=== PATIENT | female | born 1970 | race African-American/Black ===

== ENCOUNTER 2021-11-02 11:49 | Outpatient (CLI) | payer OTHER ==
[2021-11-02 12:37] LABS: Hemoglobin 13.3 g/dL (12.0-15.5); Mean Corpuscular HGB CONC 33.8 g/dL (32.0-36.0); Mean Corpuscular Hemoglobin 32.7 pg (27.0-33.0); Mean Corpuscular Volume 96.6 fl (81.6-98.3); Mean Platelet Volume 10.2 fl (7.4-10.4); Platelet Count 275 10x3/uL (150-450); RBC Distribution Width 12.3 % (11.5-14.5); Red Blood Cell (RBC) Count 4.07 10x6/uL (3.90-5.03); White Blood Cell (WBC) Count 5.7 10x3/uL (3.5-10.5)
[2021-11-02 12:53] LABS: PTT 26.6 sec (22.0-33.0); Prothrombin Time 11.2 sec (9.5-12.1)
[2021-11-02 12:57] LABS: Anion Gap 14 mmol/L (10-20); BUN (Urea Nitrogen) 12 mg/dL (9.8-20.1); Calc. Creatinine Clearance 0 mL/min (70-130); Carbon Dioxide 27 mmol/L (22-29); Chloride 106 mmol/L (98-107); Glucose 79 mg/dL (70-105); Potassium 3.5 mmol/L (3.5-5.1); Sodium 143 mmol/L (136-145)
[2021-11-02 21:34] LABS: SARS-CoV-2 PCR by NAA Not Detected (NotDetected)
== END 2021-11-02 11:50 | disposition home or self-care (01) ==
LOC: LABBT 11:49
PROVIDERS: ATTEND Surgery
DX: Z01.818 Encounter for other preprocedural examination (principal); Z20.822 Contact with and (suspected) exposure to COVID-19
CPT/HCPCS: 80048; 85027; 85610; 85730; 86850; 86900; 86901; 93005; 93010; U0003; U0005

== ENCOUNTER 2021-11-07 07:08 | Observation (INO) | payer OTHER ==
[2021-11-02 12:37] LABS: Hemoglobin 13.3 g/dL (12.0-15.5); Mean Corpuscular HGB CONC 33.8 g/dL (32.0-36.0); Mean Corpuscular Hemoglobin 32.7 pg (27.0-33.0); Mean Corpuscular Volume 96.6 fl (81.6-98.3); Mean Platelet Volume 10.2 fl (7.4-10.4); Platelet Count 275 10x3/uL (150-450); RBC Distribution Width 12.3 % (11.5-14.5); Red Blood Cell (RBC) Count 4.07 10x6/uL (3.90-5.03); White Blood Cell (WBC) Count 5.7 10x3/uL (3.5-10.5)
[2021-11-02 12:53] LABS: PTT 26.6 sec (22.0-33.0); Prothrombin Time 11.2 sec (9.5-12.1)
[2021-11-02 12:57] LABS: Anion Gap 14 mmol/L (10-20); BUN (Urea Nitrogen) 12 mg/dL (9.8-20.1); Calc. Creatinine Clearance 0 mL/min (70-130); Carbon Dioxide 27 mmol/L (22-29); Chloride 106 mmol/L (98-107); Glucose 79 mg/dL (70-105); Potassium 3.5 mmol/L (3.5-5.1); Sodium 143 mmol/L (136-145)
[2021-11-02 21:34] LABS: SARS-CoV-2 PCR by NAA Not Detected (NotDetected)
[2021-11-07] MEDS ORDERED: Midazolam HCl 2 mg/2 ml Vial ONE (09:47)
[2021-11-07] MEDS ORDERED: Thrombin 5000 UNITS/5 ML VIAL ONE (10:07)
[2021-11-07] MEDS ORDERED: CEFAZOLIN 2 GM VIAL ONE (10:15)
[2021-11-07] MEDS ORDERED: Sodium Chloride 0.9% 100 ML ONE (10:15)
[2021-11-07] MEDS ORDERED: fentaNYL Citrate/PF 100 MCG/2 ML SYRINGE ONE ×4 (10:19→13:29)
[2021-11-07] MEDS ORDERED: Rocuronium Bromide 10 MG/ML (10ML VIAL) ONE (10:36)
[2021-11-07] MEDS ORDERED: Lidocaine 1% PF 5 ML VIAL ONE (10:36)
[2021-11-07] MEDS ORDERED: Dexamethasone 20 MG/5 ML VIAL ONE (10:36)
[2021-11-07] MEDS ORDERED: Glycopyrrolate 0.2 MG/ML 5 ML SYRINGE ONE (10:36)
[2021-11-07] MEDS ORDERED: Ondansetron PF 4 MG/2 ML Vial ONE ×2 (10:36→14:21)
[2021-11-07] MEDS ORDERED: PROPOFOL 200 MG/20 ML VIAL ONE (10:36)
[2021-11-07] MEDS ORDERED: Morphine 2 MG/ML VIAL SLOW IVP PRN (12:50)
[2021-11-07] MEDS ORDERED: Ondansetron PF 4 MG/2 ML Vial IVP PRN (12:50)
[2021-11-07] MEDS ORDERED: traMADol HCl 50 MG TAB PO PRN (12:50)
[2021-11-07] MEDS ORDERED: Acetaminophen/Codeine 30-300mg Tablet PO PRN (12:50)
[2021-11-07] MEDS ORDERED: Acetaminophen 325 MG TAB PO PRN (12:50)
[2021-11-07] MEDS ORDERED: tiZANidine HCl 4 MG TAB PO PRN (12:55)
[2021-11-07] MEDS ORDERED: Fentanyl 100 MCG/2 ML VIAL ONE (13:46)
[2021-11-07] MEDS ORDERED: tiZANidine HCl 4 MG TAB ONE (14:03)
[2021-11-07] MEDS ORDERED: Cepastat Lozenges 1 LOZ PO PRN (14:06)
[2021-11-07] MEDS ORDERED: Chloraseptic Spray 180 ml Bottle PO PRN (14:06)
[2021-11-07] MEDS ORDERED: Ketorolac Tromethamine 30 MG/ML VIAL IVP PRN (14:06)
[2021-11-07] MEDS ORDERED: Ketorolac Tromethamine 30 MG/ML VIAL ONE (14:07)
[2021-11-07] MEDS: HYDROcodone/Acetaminophen 7.5/325 mg Tablet PO PRN ×2 (15:38→22:47)
[2021-11-07] MEDS: Sodium Chloride 0.9% 1,000 ML IV SCH (15:39)
[2021-11-07] MEDS: CEFAZOLIN 2 GM in Sodium Chloride 0.9% 100 ML IVPB SCH (17:45)
[2021-11-07] MEDS ORDERED: Gabapentin 100 MG CAP PO SCH (21:00)
[2021-11-08] MEDS: Sodium Chloride 0.9% 1,000 ML IV SCH (01:46)
[2021-11-08] MEDS: CEFAZOLIN 2 GM in Sodium Chloride 0.9% 100 ML IVPB SCH ×2 (01:46→10:12)
[2021-11-08 08:27] VITALS: BP 120/60; TEMP 97.7
[2021-11-08] MEDS ORDERED: Dexamethasone 10 MG/ML VIAL SLOW IVP SCH (09:30)
[2021-11-08] MEDS: HYDROcodone/Acetaminophen 7.5/325 mg Tablet PO PRN (10:12)
== END 2021-11-08 12:10 | disposition home or self-care (01) ==
LOC: SDC 07:08 → MSONC 12:56
PROVIDERS: ADMIT Surgery; ATTEND Surgery
PROC: 0RG10A0 Fusion of Cervical Vertebral Joint with Interbody Fusion Device, Anterior Approach, Anterior Column, Open Approach (ICD-10-PCS; principal; 2021-11-07)
DX: M50.122 Cervical disc disorder at C5-C6 level with radiculopathy (principal); M48.02 Spinal stenosis, cervical region; Z79.899 Other long term (current) drug therapy; Z20.822 Contact with and (suspected) exposure to COVID-19
CPT/HCPCS: 76000; 80048; 85027; 85610; 85730; 86850; 86900; 86901; 96365; 96375; 96376; C1713; C1776; G0378; J1100; J1885; J2250; J2405; J2704; J3010; J3490; J7050; U0003; U0005